=== PATIENT | male | born 1945 | race African-American/Black ===

== ENCOUNTER 2021-06-02 17:15 | Emergency (ER) | payer OTHER ==
[~2021-06-02] VITALS: Ht 175.3 cm; Wt 83.0 kg
[~2021-06-02 17:15] MED LIST: AMLODIPINE BESYL5 MG PO; LEVAQUIN750 MG PO; METFORMIN HCL500 M1 PO; PREDNISONE20 MG PO; VENTOLIN HFA IN
[2021-06-02 18:49] VITALS: BP 139/81
[2021-06-02] MEDS ORDERED: ATORVASTATIN CA20 MG PO (19:01)
[2021-06-02] MEDS ORDERED: METFORMIN HYD1000 MG PO (19:01)
[2021-06-02] MEDS ORDERED: BP MED PO (19:02)
[2021-06-02] MEDS ORDERED: ADULT ASPIRIN R81 MG PO (19:03)
[2021-06-02] MEDS ORDERED: COREG25 MG PO (19:03)
[2021-06-02] MEDS ORDERED: VOLTAREN75 MG PO (20:22)
== END 2021-06-02 21:07 | disposition home or self-care (01) | DRG 552 ==
LOC: ED 17:15
DX: S16.1XXA Strain of muscle, fascia and tendon at neck level, initial encounter (principal); S39.012A Strain of muscle, fascia and tendon of lower back, initial encounter; I10 Essential (primary) hypertension; E11.9 Type 2 diabetes mellitus without complications; I25.10 Atherosclerotic heart disease of native coronary artery without angina pectoris; V49.40XA Driver injured in collision with unspecified motor vehicles in traffic accident, initial encounter; Z79.84 Long term (current) use of oral hypoglycemic drugs